=== PATIENT | male | born 1980 | race Caucasian/White ===

== ENCOUNTER 2021-05-17 16:49 | Emergency (ER) | payer OTHER, SELFPAY ==
[2021-05-17] VITALS (12 sets, daily range): BP systolic 165–208; BP diastolic 107–117; PULSE 78–99; RESP 11–22; TEMP 36.6; O2SAT 96–100
--- NOTE | ~2021-05-17 | CT_ITS ---
EXAMINATION: CT brain wo con EXAM DATE: 05/17/2021 17:37 INDICATION: Dizziness. TECHNIQUE: Spiral CT of the head was performed without contrast. Axial, coronal and sagittal images were reviewed. The dose-length product (DLP) for this examination was 605.33 mGy-cm. The exposure w as tailored according to patient size, and iterative reconstruction (ASIR) was used as additional dos e reduction technique. There is no prior study for comparison. FINDINGS: There is no acute intraparenchymal hemorrhage. No evidence of intraparenchymal brain mass lesion. No evidence of acute infarction. There is no mass effect or midline shift. The ventricles are normal in size. There are no extra-axial collections. There are no acute calvarial fractures. T he orbits are unremarkable. Soft tissue is unremarkable. The visualized sinuses and mastoid air vickey ls are well aerated. IMPRESSION: 1. No acute intracranial findings. Reviewed, dictated and finalized at location . CAL PARASITOLOGIST
--- NOTE | ~2021-05-17 | XR_ITS ---
EXAMINATION: XR chest 2V EXAM DATE: 05/17/2021 17:52 INDICATION: Palpitations,Dizzy,Nausea,Hang Tingling,HTN. TECHNIQUE: Frontal and lateral projections of the chest obtained and reviewed. Comparison is made to prior examination from 07/12/2017. FINDINGS: The lungs are clear. There are no pleural effusions. The cardiomediastinal silhouette is within normal limits. There is no pneumothorax suspected. The bones and soft tissues are unremarkab le. IMPRESSION: No acute cardiopulmonary findings. Reviewed, dictated and finalized at location G. NGUAL INSTRUCTOR
--- NOTE | 2021-05-17 16:52 | ECG_ITS ---
Measurements Intervals [place] Rate: 96 P: 51 IA: 170 QRS: 42 QRSD: 97 T: 6 QT: 352 QTc: 445 Interpretive Statements SINUS RHYTHM POSSIBLE LEFT ATRIAL ENLARGEMENT BORDERLINE ECG Electronically Signed On 05-17-2021 20:39:10 SYSTEM ADMINISTRATION ADVISOR by Palomo Cochran D.O.
--- NOTE | 2021-05-17 17:08 | ED.DIZZY ---
HPI - Dizziness General Chief Complaint: Dizziness Stated Complaint: DIZZINESS,PALPATATIONS Time Seen by Provider: 05/17/21 17:08 Source: patient Mode of arrival: ambulatory Limitations: no limitations History of Present Illness HPI Narrative: Patient is a 40-year-old male with a history of hypertension presenting for evaluation of headache, dizziness, palpitations. Patient states that he has been without his blood pressure medication over the past 8 months. When questioned what blood pressure medication the patient used to take he cannot state the name of any medications. He states that he ran out of his prescription and then did not make an appointment with his primary care provider. Patient states today while he was at work approximately five hours ago he started to have notations as well as dizziness. Patient states that the dizziness was an unsteady feeling and he did not endorse a spinning sensation. He reports nausea without vomiting. No blurry vision. Mild headache over his forehead. Patient states he has been having headaches for the past few weeks which have been mild and intermittent, and patient actually called his primary care provider and is scheduled for a follow-up appointment on of this week. Patient denies any focal weakness or numbness. He has been ambulatory. He denies dizziness currently at the time of my assessment. Patient states that yesterday he had to put his dog to sleep, it has been very stressful for him. He denies any chest pain. No cough, shortness of breath. No diaphoresis. After discussion with his PCP, patient used to take Valsartan 320 mg daily. Related Data Allergies Allergy/AdvReac Type Severity Reaction Status Date / Time No Known Allergies Allergy Verified 05/17/21 17:14 Review of Systems Review of Systems: CONSTITUTIONAL: Denies fever, chills, or sweats. EYES: Denies visual changes, redness, or discharge. ENT: Denies rhinorrhea, congestion, sore throat, or otalgia. CARDIOVASCULAR: Denies chest pain, reports palpitations without edema RESPIRATORY: Denies cough or dyspnea. GASTROINTESTINAL: Denies abdominal pain, reports nausea without vomiting GENITOURINARY: Denies dysuria or hematuria. SKIN: Denies rash or itching. MUSCULOSKELETAL: Denies back pain, joint pain, or myalgia. NEUROLOGIC: Reports headache without focal weakness or numbness PMFSH Social History Social History Smoking status: Former smoker Smoking end date: 04/17/14 Alcohol intake: current Exam Narrative: GENERAL: Awake, alert, conversant HEAD: Normocephalic, atraumatic. EYES: PERRLA and EOMI. ENT: Nares clear, no rhinorrhea or epistaxis. Mucous membranes moist. NECK: Supple. CHEST: No respiratory distress, breathing even and non labored HEART: Regular rate, sinus rhythm ABDOMEN:Non distended, non tender EXTREMITIES: Normal range of motion. No edema. SKIN: Warm, dry, no rash. NEURO:No focal deficits. Alert and oriented x3. Finger to nose intact bilaterally. EOMs intact without nystagmus. No facial droop/asymmetry noted bilaterally. Grimace intact. Intact sensation in face. Hearing intact bilaterally. Shoulder shrug intact. Strength 5/5 bilateral upper extremities. Strength 5/5 bilateral lower extremities. Reflexes 2+ patellar. Heel to coppola intact bilaterally. Ambulatory with a steady base, narrow gait. No ataxia. Course Vital Signs Vital signs: Vital Signs Temperature 36.6 C 05/17/21 17:00 Pulse Rate 99 05/17/21 17:00 Respiratory Rate 16 05/17/21 17:00 Blood Pressure 208/117 H 05/17/21 17:00 Pulse Oximetry 99 05/17/21 17:00 Temperature 36.6 C 05/17/21 17:00 Pulse Rate 78 05/17/21 18:53 Respiratory Rate 16 05/17/21 18:53 Blood Pressure 166/114 H 05/17/21 18:53 Pulse Oximetry 100 05/17/21 18:53 MDM - Dizziness MDM Narrative Medical decision making narrative: The patient was evaluated in the emergency
--- NOTE | 2021-05-17 17:35 | PC.NURSE ---
Pt. to CT
[2021-05-17] MEDS: MAGNESIUM SULF 2 GM/WATER 50ML 2 GM/50 ML BAG IVPB (17:51)
[2021-05-17] MEDS: SODIUM CHLORIDE 0.9% IV 1,000 ML 999 ML IV CONT (17:51)
[2021-05-17] MEDS: METOCLOPRAMIDE HCL INJ 10 MG/2 ML VIAL IV PUSH (17:52)
[2021-05-17] MEDS: METOPROLOL TARTRATE INJ 5 MG/5 ML VIAL IV PUSH (17:54)
[2021-05-17 17:55] LABS: Basophils Absolute Auto 0.1 K/mm3 (0.0-0.1); Basophils Percent Auto 0.6 % (0.2-1.2); Eosinophils Absolute Auto 0.2 K/mm3 (0-0.3); Eosinophils Percent Auto 2.4 % (0-4.4); Hematocrit 40.6 % (42.0-52.0); Hemoglobin 13.9 g/dL (14.0-18.0); Immature Granulocyte Absolute 0.02 K/mm3 (0.00-0.031); Immature Granulocyte Percent A 0.3 % (0-0.5); Lymphocytes Absolute Auto 1.81 K/mm3 (0.9-3.2); Lymphocytes Percent Auto 22.9 % (18.3-44.2); Mean Corpuscular HGB Conc 34.2 g/dl (32-36); Mean Corpuscular Hemoglobin 30.5 pg (26-34); Mean Corpuscular Volume 89.2 fl (80-100); Mean Platelet Volume 9.7 fl (7.4-10.4); Monocytes Absolute Auto 0.5 K/mm3 (0.1-0.6); Monocytes Percent Auto 6.5 % (2.6-8.5); Neutrophils Absolute Auto 5.3 K/mm3 (1.3-6.7); Neutrophils Percent Auto 67.3 % (45.5-73.1); Platelet Count Result 292 k/mm3 (150-375); Red Blood Count 4.55 M/mm3 (4.6-6.20); White Blood Count 7.9 K/mm3 (4.5-10.0)
[2021-05-17 18:14] LABS: Alanine Aminotransferase 28 U/L (4-50); Albumin Level 4.3 g/dL (3.5-5.1); Alkaline Phosphatase 133 U/L (38-126); Anion Gap 8 mmol/L (8-16); Aspartate Amino Transferase 22 U/L (17-59); Bilirubin,Total 0.5 mg/dL (0.2-1.3); Blood Urea Nitrogen 15 mg/dL (9-20); Calcium 8.5 mg/dL (8.4-10.2); Carbon Dioxide 20 mmol/L (22-30); Chloride 105 mmol/L (98-107); Estimated CRCL calculation 107 ml/min; Estimated Glomerular Filt Rate > 60; Glucose 161 mg/dL (65-110); Potassium 3.5 mmol/L (3.4-5.0); Sodium 133 mmol/L (137-145)
[2021-05-17] MEDS: VALSARTAN 160 MG TABLET 320 MG PO (18:15)
[2021-05-17 18:19] LABS: NT Pro B Type Natriuretic Pept 115 pg/mL (5-100)
[2021-05-17 18:21] LABS: Troponin I < 0.012 ng/mL (0.000-0.034)
[2021-05-17 19:13] LABS: Add Urine Microscopic? NO; Appearance Urine Clear (Clear); Bilirubin Urine Negative (Negative); Blood Urine Negative (Negative); Color Urine Yellow (Yellow); Glucose Urine UA Negative (Negative); Ketones Urine Negative (Negative); Leukocyte Esterase Ur Negative LEU/UL (Negative); Nitrate Urine Negative (Negative); Protein Urine Negative (Negative); Specific Grav Ur 1.017 (1.001-1.035); Urobilinogen Urine Negative mg/dL (<2.0)
== END 2021-05-17 19:30 | disposition home or self-care (01) ==
PROVIDERS: Emergency Provider Emergency Medicine; PCP Physician Assistant
DX: I16.9 Hypertensive crisis, unspecified (principal); R51.9 Headache, unspecified; R42 Dizziness and giddiness; Z87.891 Personal history of nicotine dependence; R94.31 Abnormal electrocardiogram [ECG] [EKG]
CPT/HCPCS: 36415; 70450; 71046; 80053; 81003; 83880; 84484; 85025; 93005; 96365; 96367; 96375; 99284; A9270; J0131; J2765; J3475; J7030

== ENCOUNTER 2021-05-28 15:33 | Outpatient (CLI) | payer OTHER, SELFPAY ==
--- NOTE | ~2021-05-28 | US_ITS ---
EXAMINATION: US retroperitoneal duplex ltd EXAM DATE: 05/28/2021 16:12 INDICATION: TECHNIQUE: Multiple grayscale and Doppler images of the kidneys and renal arteries were obtained. T here is no prior study for comparison. FINDINGS: The aorta peak systolic velocity is 108 cm/s. Renal arteries interrogated in several segments from origin to hilum. RIGHT RENAL ARTERY Proximal segment (origin): 117 cm/s. Middle segment: 117 cm/s. Distal segment (hilum): 87 cm/s. LEFT RENAL ARTERY Proximal segment (origin): 104 cm/s. Middle segment: 67 cm/s. Distal segment (hilum): 74 cm/s. IMPRESSION: 1. Renal artery Doppler velocities within normal limits. Reviewed, dictated and finalized at location B. PT MANAGER
== END 2021-05-28 15:34 | disposition home or self-care (01) ==
LOC: ANHIMG 15:36
PROVIDERS: PCP Physician Assistant; Visit Provider Physician Assistant
DX: I10 Essential (primary) hypertension (principal)
CPT/HCPCS: 93976

== ENCOUNTER 2022-08-14 08:07 | Emergency (ER) | payer OTHER, SELFPAY ==
--- NOTE | 2022-08-14 08:11 | ED.URI ---
HPI - URI/Sore Throat General Chief Complaint: Upper Respiratory Infection Stated Complaint: Sore Throat Time Seen by Provider: 08/14/22 08:11 Source: patient, RN notes reviewed and old records reviewed Mode of arrival: ambulatory Limitations: no limitations History of Present Illness HPI Narrative: 41-year-old male presents to the [facility] with complaints of sore throat since this morning. Reports having a cough yesterday. Denies any other symptoms. No fevers. No congestion. No treatment prior to arrival Reports that he did take his blood pressure medication about 30 minutes prior to arrival Onset (ago): hour(s) Treatments prior to arrival: none Related Data Home Medications Medication Instructions Recorded Confirmed amlodipine 10 mg tablet 10 mg PO DAILY 08/14/22 08/14/22 Allergies Allergy/AdvReac Type Severity Reaction Status Date / Time No Known Allergies Allergy Verified 08/14/22 08:12 Review of Systems Review of Systems: All systems reviewed & are unremarkable except as noted in HPI and below Constitutional: Constitutional: Reports no additional constitutional complaints Eyes: Eyes: Reports no additional eye complaints ENT: Reports as per HPI and Reports sore throat Cardiovascular: Cardiovascular: Reports no additional cardiovascular complaints, Denies chest pain and Denies dyspnea Respiratory: Respiratory: Reports as per HPI, Denies chest congestion, Reports cough and Denies dyspnea Gastrointestinal: Gastrointestinal: Reports no additional gastrointestinal complaints, Denies abdominal pain, Denies nausea and Denies vomiting Musculoskeletal: Musculoskeletal: Reports no additional musculoskeletal complaints Integumentary/Breasts: Skin/Breast: Reports system reviewed and no additional complaints, except as docu Neurologic: Reports system reviewed and no additional complaints, except as documented Psychiatric: Psychiatric: Reports no additional psychiatric complaints Allergic/Immunologic: Allergic/Immunologic: Reports no additional allergic/immunologic complaints [facility] Past Medical History Medical History History of high blood pressure Social History Social History Smoking status: Former smoker Smoking end date: 04/17/14 Alcohol intake: current Comments At the time of my signature, I reviewed and agree with the nursing past medical, surgical, social, and family history. There is no relevant family history pertinent to the patient complaint. Exam Const: General: cooperative, healthy appearing, comfortable, no acute distress, well developed, alert and well nourished Nutritional Appearance: well nourished Orientation/consciousness: patient oriented x3 Limitations: no limitations HENMT: Head: normal to inspection Ears: hearing grossly normal bilaterally and external ears normal Face/Nose/Sinus: Normal external nose present, Normal nares present, Normal nasal mucous membranes and turbinates present and normal facial exam Face and sinus: normal facial exam Mouth: Yes Normal oral and palatal mucosa present, Yes lip normal and Yes moist mucous membranes Throat: posterior oropharynx normal, tonsils normal, uvula midline and postnasal drainage Eyes: General: appearance normal, both eyes and all related structures Alignment and Position: alignment normal Periorbital: periorbital findings normal Conjunctivae: conjunctivae normal Pupils: Equal, round and reactive pupils present EOM: EOMs intact bilaterally Neck: Neck: normal visual inspection, full ROM, no lymphadenopathy and no meningeal signs Chest: Chest palpation & inspection: normal inspection of the chest Resp: Effort & Inspection: normal respiratory effort and able to speak in complete sentences Auscultation: clear to auscultation bilaterally, no crackles, no rales, no rhonchi and no wheezes Cardio: Rate: regular rate Rh
[2022-08-14 08:15] VITALS: BP 146/101; PULSE 73; RESP 20; TEMP 36.4; O2SAT 99
== END 2022-08-14 08:36 | disposition home or self-care (01) ==
PROVIDERS: Emergency Provider Nurse Practitioner
DX: J06.9 Acute upper respiratory infection, unspecified (principal); Z87.891 Personal history of nicotine dependence; I10 Essential (primary) hypertension
CPT/HCPCS: 87081; 87880; 99213; G0463

== ENCOUNTER 2024-01-10 22:45 | Emergency (ER) | payer OTHER, SELFPAY ==
--- NOTE | ~2024-01-10 | CT_ITS ---
EXAMINATION: CT brain wo con DATE: 01/10/2024 23:15 INDICATION: syncopal episode . TECHNIQUE: Computed tomography (CT) of the head was performed without intravenous contrast. The mA wa s adjusted according to patient size. Iterative reconstruction technique was employed. The dose-lengt h product was 605.33 mGy-cm. COMPARISON: None. FINDINGS: No acute intracranial hemorrhage or extra-axial fluid collection. No hydrocephalus, mass, or herniation. No acute ischemic infarct. Unremarkable dural venous sinus attenuation. No acute osseous abnormality. The aerated spaces are clear. IMPRESSION: No acute intracranial process. Reviewed, dictated and finalized at location K.
[2024-01-10 22:46] VITALS: BP 131/83; PULSE 81; RESP 14; TEMP 36; O2SAT 98
--- NOTE | 2024-01-10 22:49 | ECG_ITS ---
Test Date: 2024-01-10 22:49:21 Measurements Intervals [place] Rate: 79 P: 30 WV: 172 QRS: 47 QRSD: 92 T: 26 QT: 379 QTc: 435 Interpretive Statements SINUS RHYTHM NORMAL ECG No previous ECG available for comparison Electronically Signed On 01-11-2024 07:58:46 CDT by Palomo Cochran D.O.
[2024-01-10 22:58] LABS: Basophils Percent Auto 0.6 % (0.2-1.2); Eosinophils Absolute Auto 0.1 K/mm3 (0-0.3); Eosinophils Percent Auto 2.1 % (0-4.4); Hematocrit 35.5 % (42.0-52.0); Hemoglobin 11.8 g/dL (14.0-18.0); Immature Granulocyte Absolute 0.01 K/mm3 (0.00-0.031); Immature Granulocyte Percent A 0.2 % (0-0.5); Lymphocytes Absolute Auto 2.17 K/mm3 (0.9-3.2); Lymphocytes Percent Auto 34.6 % (18.3-44.2); Mean Corpuscular HGB Conc 33.2 g/dl (32-36); Mean Corpuscular Hemoglobin 30.3 pg (26-34); Mean Platelet Volume 9.4 fl (7.4-10.4); Monocytes Absolute Auto 0.4 K/mm3 (0.1-0.6); Monocytes Percent Auto 6.8 % (2.6-8.5); Neutrophils Absolute Auto 3.5 K/mm3 (1.3-6.7); Neutrophils Percent Auto 55.7 % (45.5-73.1); Platelet Count Result 293 k/mm3 (150-375); Red Cell Distribution Width 13.6 % (11.5-14.5); White Blood Count 6.3 K/mm3 (4.5-10.0)
[2024-01-10] MEDS: ONDANSETRON INJ 4 MG/2 ML VIAL IV PUSH (22:59)
[2024-01-10] MEDS: SODIUM CHLORIDE 0.9% IV 1,000 ML 999 ML IV CONT (22:59)
[2024-01-10 23:00] VITALS: BP 132/80; PULSE 71; RESP 16; O2SAT 94
--- NOTE | 2024-01-10 23:06 | ED.SYNCOPE ---
HPI - Syncope General Chief Complaint: Syncope <Nadege Becerra APRN - Last Filed: 01/11/24 03:02> Stated Complaint: SYNCOPE S/P ETOH & MARIJUANA USE <Nadege Becerra APRN - Last Filed: 01/11/24 03:02> Time Seen by Provider: 01/10/24 22:46 <Nadege Becerra APRN - Last Filed: 01/11/24 03:02> History of Present Illness HPI narrative: Patient is a 43-year-old male who presents to the ER after a syncopal episode. He reports he was at the bar and has 3 drinks, then he went home and had 1 hit of marijuana. Patient reports he decided to grab a snack but then started to feel dizzy and his vision went blurry. He reports his walked out to the garage and found him slumped over. Patient reports he had also vomited. He reports he did not fall but rather slumped in his chair. Patient endorses shaking, diaphoresis, and vertigo prior to his syncopal episode. Upon arrival at the ER he denies shaking and diaphoresis, but continues to endorse dizziness. EMS reports patient appears much better than he did upon their arrival at his house. Patient endorses a history of hypertension, for which he takes 2 daily medications. He also endorses he is prediabetic. Patient has a primary care provider. <Nadege Becerra APRN - Last Filed: 01/11/24 03:02> Related Data Home Medications: Home Medications Medication Instructions Recorded Confirmed amlodipine 10 mg tablet 10 mg PO DAILY 08/14/22 08/14/22 <Nadege Becerra APRN - Last Filed: 01/11/24 03:02> Allergies/Adverse Reactions: Allergies Allergy/AdvReac Type Severity Reaction Status Date / Time No Known Allergies Allergy Verified 08/14/22 08:12 <Nadege Becerra APRN - Last Filed: 01/11/24 03:02> Review of Systems Review of Systems: All systems reviewed & are unremarkable except as noted in HPI and below <Nadege Becerra APRN - Last Filed: 01/11/24 03:02> [facility] Past Medical History Medical History: Medical History History of high blood pressure <Nadege Becerra APRN - Last Filed: 01/11/24 03:02> Social History Social History: Social History Smoking status: Former smoker Smoking end date: 04/17/14 Alcohol intake: current <Nadege Becerra APRN - Last Filed: 01/11/24 03:02> Exam Narrative: GENERAL: Well appearing, well-nourished, non-toxic, in no acute distress. HEAD: Normocephalic, atraumatic. NECK: Supple. No adenopathy, no masses. RESPIRATORY: Airway patent, respirations nonlabored. Clear to auscultation bilaterally, no rales, rhonchi, wheezing. CARDIOVASCULAR: Regular rate and rhythm without murmurs, rubs, or gallops. Peripheral pulses 2+ and equal bilaterally. ABDOMINAL: Soft, nontender, nondistended, no hepatosplenomegaly. Normoactive BS. MUSCULOSKELETAL: Moves all extremities. Strength/ROM intact without gross deformities. SKIN: Warm, dry, pallor. No rashes. NEURO: A&O X3. Speech clear. Cranial nerves II-XII grossly intact. No ataxic movements, increased vertigo with pt moved to a sitting position. PSYCHIATRIC: Appropriate mood and affect. Normal interaction. <Nadege Becerra APRN - Last Filed: 01/11/24 03:02> Course MAIL ORDER BILLER/PA Physician Supervision I agree with midlevel documentation; I performed the medical decision making component of this evaluation. <Amanda Hernandez MD - Last Filed: 01/11/24 03:49> Reevaluation(s) Reevaluation #1: Patient 2nd troponin is normal. Telemetry on my independent interpretation showing normal sinus rhythm. Patient on re-evaluation is feeling better. With shared decision making, patient and at bedside are comfortable with outpatient management with return precautions. <Amanda Hernandez MD - Last Filed: 01/11/24 03:49> Vital Signs Vital signs: Vital Signs Temperature 96.8 F L 01/10/24 22:46 Pulse Rate 81
[2024-01-10 23:11] LABS: Alanine Aminotransferase 30 U/L (6-50); Albumin Level 4.4 g/dL (3.5-5.1); Alkaline Phosphatase 81 U/L (38-126); Anion Gap 10 mmol/L (4-12); Aspartate Amino Transferase 19 U/L (17-59); Bilirubin,Total 0.3 mg/dL (0.2-1.3); Blood Urea Nitrogen 26 mg/dL (9-20); Calcium 8.8 mg/dL (8.4-10.2); Carbon Dioxide 23 mmol/L (22-30); Chloride 104 mmol/L (98-107); Estimated CRCL calculation 77 ml/min; Estimated Glomerular Filt Rate 55; Glucose 106 mg/dL (65-110); INR 1.1; Magnesium 2.1 mg/dL (1.6-2.3); Potassium 3.5 mmol/L (3.4-5.0); Prothrombin Time 14.3 Seconds (11.1-14.7); Sodium 137 mmol/L (137-145)
[2024-01-10 23:12] LABS: Partial Thromboplastin Time 25.1 Seconds (22.3-36.8)
[2024-01-10 23:22] LABS: D Dimer < 0.27 ug/mL (<0.48); Troponin I < 0.012 ng/mL (0.000-0.034)
[2024-01-11 00:42] LABS: Hemoglobin A1C 5.8 % (<5.7)
[2024-01-11 01:22] LABS: Add Urine Microscopic? YES; Appearance Urine Clear (Clear); Bacteria Urine None Seen /hpf; Bilirubin Urine Negative (Negative); Blood Urine Negative (Negative); Color Urine Yellow (Yellow); Glucose Urine UA Negative (Negative); Ketones Urine Negative (Negative); Leukocyte Esterase Ur Trace LEU/UL (Negative); Nitrate Urine Negative (Negative); Non Pathogenic Casts 0-2; Protein Urine Negative (Negative); RBC Urine 0-2 /hpf (0-2); Specific Grav Ur 1.021 (1.001-1.035); Squamous Epithelial Cell Urine None Seen /hpf (Few); pH Urine 5.5 (5.0-9.0)
[2024-01-11] MEDS: SODIUM CHLORIDE 0.9% IV 1,000 ML 999 ML IV CONT (01:53)
[2024-01-11 02:00] VITALS: BP 137/93; PULSE 77; RESP 14; O2SAT 96
[2024-01-11 03:27] LABS: Troponin I < 0.012 ng/mL (0.000-0.034)
[2024-01-11 04:11] VITALS: BP 134/70; PULSE 78; RESP 14; O2SAT 100
== END 2024-01-11 04:13 | disposition home or self-care (01) ==
PROVIDERS: Registered Nurse; Emergency Provider Emergency Medicine; PCP Physician Assistant
DX: N39.0 Urinary tract infection, site not specified (principal); E86.0 Dehydration; R42 Dizziness and giddiness; F12.90 Cannabis use, unspecified, uncomplicated; I10 Essential (primary) hypertension; R73.03 Prediabetes; Z87.891 Personal history of nicotine dependence
CPT/HCPCS: 36415; 70450; 80053; 81001; 83036; 83735; 84443; 84484; 85025; 85380; 85610; 85730; 87077; 87086; 87088; 87186; 93005; 96361; 96365; 96375; 99284; J0696; J2405; J7030

== ENCOUNTER 2024-08-29 02:53 | Day surgery (SDC) | payer OTHER, SELFPAY ==
[2024-08-22 10:03] VITALS: BMI 28.4
--- OUTSIDE RECORDS SUMMARY | 2024-08-29 02:55 | XMS_ITS | Referral Summary ---
Author Organization [facility] [id number] Address [address] [place] [phone] Care Team Providers Care Aircraft Structural Design Engineer Name Role Phone Naty Molina Primary Care Pr ovider Allergies No known active allergies Medications valsartan (DIOVAN) 320 mg tablet 1 tablet (320 mg total) Active amLODIPine (NORVASC) 10 mg tablet Take 1 tablet (10 mg total) by mouth daily 08/17/2022 Active Hospital, Clinic, or Other Facility Administered Medication Ordered Dose Route Frequency Start Date End Date Status cefTRIAXone (ROCEPHIN) 350 mg/mL intramuscular injection 1,000 mgIndications:Urinary Tract/Genitourinary Infection 1000 mg IM Every 24 hours scheduled 10/14/2023 Active Active Problems Problem Noted Date Diagnosed Date Injury of lower leg 05/08/2023 Spastic paraplegia type 11 03/15/2023 Morning headache 08/25/2022 Obstructive sleep apnea syndrome 08/25/2022 Dyslipidemia 06/23/2021 Impaired glucose tolerance 06/23/2021 Bacterial conjunctivitis 06/08/2021 Feeling stressed out 05/23/2021 Anxiety 05/23/2021 Resistant hypertension 05/23/2021 Benign essential hypertension 05/18/2021 Social History Tobacco Use Types Packs/Day Years Used Date Smoking Tobacco: Never Smokeless Tobacco: Never Tobacco Cessation:Counseling Given: Not Answered Sex and Gender Information Value Date Recorded Sex Assigned at Not on file Legal 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 Gender Identity Not on file Sexual Orientation Not on file Last Filed Vital Signs Vital Sign Reading Time Taken Comments Blood Pressure 126/70 10/14/2023 6:22 PM CDT Pulse 106 10/14/2023 6:22 PM CDT Temperature 38.2 C (100.8 F) 10/14/2023 6:22 PM CDT Respiratory Rate 22 10/14/2023 6:22 PM CDT Oxygen Saturation 96% 10/14/2023 6:22 PM CDT Inhaled Oxygen Concentration - - Weight 122 kg (269 lb) 10/14/2023 6:22 PM CDT Height 185.4 cm (6' 1 ) 10/14/2023 6:22 PM CDT Body Mass Index 35.49 10/14/2023 6:22 PM CDT Plan of Treatment Not on file Insurance Care Teams Aircraft Structural Design Engineer Relationship Specialty Start Date End Date Naty Molina PA PCP - General Physician Rehabilitation Liaison 11/19/22
--- OUTSIDE RECORDS SUMMARY | 2024-08-29 02:55 | XMS_ITS | Data Portability ---
Author Organization TE[facility] Danielle KAPLAN Address [address] [place] [address] Care Team Providers Care Claim Administrator Name Role Phone MENDEZ SARGENT Primary Care Provider Unavailab le Assessment No assessment recorded. Plan of Treatment Reminders Order Date Submit Date Provider Last Modified By Organization Details Last Modified Time Details Appointments NURSE ONLY 2024 08:30A M JOSR Maki Not available Not available Not available ANY 15 2024 08:00A M JOSR Maki Not available Not available Not available Lab None recorded. Referral None recorded. Procedures None recorded. Surgeries None recorded. Imaging None recorded. Medication Orders testoster one cypionate 200 mg/mL intramusc ular oil 2024 025 [email or web address] [facility] [address], [address] [facility], [place], [address], 08/22/2024 16:35:14 testoster one cypionate 200 mg/mL intramusc ular oil 2024 025 Not available 08/08/2024 13:09:39 testoster one cypionate 200 mg/mL intramusc ular oil 2024 025 Not available 07/25/2024 13:43:13 testoster one cypionate 200 mg/mL intramusc ular oil 2024 025 Not available 07/11/2024 13:16:57 testoster one cypionate 100 mg/mL intramusc ular oil 2024 025 [email or web address] [facility] [address], [address], [place], [address], 06/27/2024 12:49:12 Patient TargetsNo targets recorded. Patient InstructionsNo instructions recorded. Reason for Referral None Reported. Results Created Date Observation Date Name Description Value Unit Range Abnormal Flag Note LastModifiedBy Organization Detail LastModifiedTime Result Notes None recorded. Problems Name Problem SNOMED Code Status Onset Date Resolution Date Notes Provider Name and Address Organization Details Recorded Time Benign essential hypertension 4140173 Active 2023 JOSR Maki Attn: Accountin g,[address], [place], [address], [place] [facility] 4 10:27:39 Hyperlipidemia 55770778 Active 2023 JOSR Maki Attn: Accountin g,[address] [facility], [place], [address], [place] [facility] 4 10:27:41 Blood glucose outside reference range 731951275 Active 2023 JOSR Maki Attn: Accountin g,[address] [facility], [place], [address], [place] [facility] 4 10:27:43 Body mass index 30+ - obesity 187055945 Active 2023 JOSR Maki Attn: Accountin g,[address] [facility], [place], [address], [place] [facility] 4 10:27:45 Obesity 836813152 Active 2023 JOSR Maki Attn: Accountin g,[address] [facility], [place], [address], [place] [facility] 4 10:27:46 Erectile dysfunction 715675021 Active 2023 JOSR Maki Attn: Accountin g,[address] [facility], [place], [address], [place] [facility] 4 10:27:16 Intolerant of heat 27014139 Active 2023 JOSR Maki Attn: Natacha g,[address] [facility], [place], [address], [facility] - [facility] 4 10:27:26 Anemia 649001723 Active 2023 JOSR Maki Attn: Natacha g,[address] [facility], [place], [address], [facility] - [facility] 4 10:28:42 Long-term drug therapy Active 2023 JOSR Maki Attn: Natacha g,[address] [facility], [place], [address], [facility] - [facility] 4 10:29:35 Problem Notes None recorded. Medical Equipment None Reported. Allergies No known drug allergies Medications Name Sig Start Date Stop Date Status Note LastModified by Organization Details LastModified Time amoxicillin 500 mg capsule TAKE 1 CAPSULE BY MOUTH TWICE DAILY FOR 10 DAYS 12/13 completed Not Available Not Available Not Available testosteron e cypionate 100 mg/mL intramuscul ar oil INJECT 1ML INTRAMUSC ULARLY EVERY 2 WEEKS DISCARD REMAINDER 28 DAYS AFTER FIRST PUNCTURE active Not Available Not Available No t Available valsartan 160 mg-hydrochl orothiazide 12.5 mg tablet completed Not Available Not Available Not Available sulfamethox azole 800 mg-trimetho prim 160 mg tablet TAKE 1 TABLET BY MOUTH TWICE DAILY FOR 7 DAYS 12/13 completed Not Available Not Available Not Available amlodipine 10 mg tablet Take 1 tablet by mouth once daily 2024 active Not Available Not Available Not Avai lable cephalexin 500 mg capsule TAKE 1 CAPSULE BY MOUTH TWICE DAILY FOR 10 DAYS 12/13 completed Not Available Not Available Not Available valsartan 320 mg tablet TAKE 1 TABLET BY MOUTH ONCE DAILY active Not Available Not Available No t Available betamethaso ne dipropionat e 0.05 % topical cream active Not Available Not Available Not Available testosteron e cypionate 200 mg/mL intramuscul ar oil Inject 1 mL every 2 weeks by intramusc ular route. 2024 active Not Available Not Available Not Avai lable tadalafil 20 mg tablet TAKE 1 TABLET BY MOUTH EVERY DAY NEEDED FOR INTERCOUR SE active Not Available Not Available No t Available nitrofurant oin monohydrate /macrocryst als 100 mg capsule 06/20 completed Not Available Not Available Not Available Vitals None Recorded Social History Question Answer Notes LastModified by Organizat ion Details LastModified Time Tobacco Smoking Status Never Smoker Parvin Díaz MA null, [place] - [facility] 06/15/2023 10:52:49 Do You Have An Advance Directive? Yes Information not available 12/14/2023 Are You Blind Or Do You Have Difficulty Seeing? No Information not available 06/15/2023 What Is Your Level Of Caffeine Consumption? Occasional Cup Cofee Am, Soda Lunch Information not available 06/15/2023 In The 14 Days Before Symptom Onset, Have You Had Close Contact With A Laboratory-confir med COVID-19 While That Case Was Ill? No Information not available 06/15/2023 In The 14 Days Before Symptom Onset, Have You Had Close Contact With A Person Who Is Under Investigation For COVID-19 While That Person Was Ill? No Information not available 06/15/2023 Have You Been To An Area Known To Be High Risk For COVID-19? No Information not available 06/15/2023 Are You Deaf Or Do You Have Serious Difficulty Hearing? No Information not available 06/15/2023 What Type Of Diet Are You Following? REGULAR Information not available 06/15/2023 Are There Any Guns Present In Your Home? No Information not available 06/15/2023 What Was The Date Of Your Most Recent Tobacco Screening? 06/20/2024 Information not available 06/20/2024 What Is Your Relationship Status? Information not available 12/14/2023 Do You Use Your Seat Belt Or Car Seat Routinely? Yes Information not available 06/15/2023 Do You Have Smoke And Carbon Monoxide Detectors In Your Home? Yes Information not available 06/15/2023 Do You Use Sunscreen Routinely? Yes Information not available 06/15/2023 Has Tobacco Cessation Counseling Been Provided? Yes Information not available 06/15/2023 On What Date Was Tobacco Cessation Counseling Provided? 06/20/2024 Information not available 06/20/2024 Sex: Male Functional Status Question Answer Note LastModified by Organizat ion Details LastModified Time Do you use any illicit or recreational drugs? No Information not available 06/15/2023 Do you or have you ever used any other forms of tobacco or nicotine? Yes Information not available 06/15/2023 What is your level of alcohol consumption? Occasional Information not available 06/15/2023 Do you or have you ever used smokeless tobacco? Never used smokeless tobacco Information not available 12/14/2023 Are you currently employed? Yes Information not available 06/20/2024 Are you able to care for yourself? Yes Information not available 06/15/2023 Do you or have you ever used e-cigarettes or vape? Current user of electronic cigarettes vape Information not available 12/14/2023 What is your exercise level? None Walk at work , Walk Dog Information not available 06/15/2023 Mental Status Question Answer Note LastModified by Organization D etails LastModified Time Do you feel stressed (tense, restless, nervous, or anxious, or unable to sleep at night)? [id number] Information not available 06/15/2023 Family History Nothing Reported. Medical History Condition Response Muscle, Joint, or Bone Problems N Atrial Fibrillation N Acid Reflux (GERD) N Cancer N Allergies Y COPD N Blood Clots N Asthma N Anemia N Hepatitis N Liver Disease N Heart Failure N Immunizations Vaccine Type Date Status Note Provider Nam e and Address Organization Details Recorded Time Influenza, recombinant, quadrivalent, PF 03/16/2022 completed SHELBY Kim[place], [place] [facility] 02/07/2024 10:03:17 COVID-19, mRNA, LNP-S, PF, 100 mcg/0.5mL dose or 50 mcg/0.25mL dose 02/24/2021 completed SHELBY [place], [place] [facility] 02/07/2024 10:03:17 COVID-19 vaccine, vector-nr, rS-Ad26, PF, 0.5 mL 06/22/2020 completed Parvin Díaz MA null, [place] - [facility] 02/07/2024 10:03:17 Influenza, split virus, quadrivalent, PF 12/10/2019 completed SHELBY Kim[place], [place] [facility] 02/07/2024 10:03:17 Past Encounters Encounter ID Performer Location Encounter Start Date Encounter Closed Date Diagnosis/Indication Diagnosis SNOMED-CT Code Diagnosis ICD10 Code Diagnosis Note [id number] Yoni Pedroza MD [facility] [address] [place] [address] 06/15/2023 10:34:55 06/15/2023 11:25:31 Benign essential hypertension 2307123 I10 stable on amlodipine 10mg daily and valsartan 320mg daily. Hyperlipidemia 17564679 E78.5 due for repeat fasting lipid panel Long-term drug therapy 346721809 Z79.899 routine cmp and cbc due Blood gluc ose outside reference range 515940319 R73.09 prediabete s hx on labs. due for updated a1c and insulin in october. Body mass index 30+ - obesity 350026872 Z68.36 Obesity 095794554 E66.9 [id number] Yoni Pedroza MD [facility] - [place] [address] [place] [address] 12/14/2023 10:14:54 12/14/2023 11:37:59 Benign essential hypertension 0713644 I10 stable on amlodipine 10mg daily and valsartan 320mg daily. Hyperlipidemia 23898528 E78.5 due for repeat fasting lipid panel Long-term drug therapy 150382777 Z79.899 Next labs are due June 12 timeframe Blood gluc ose outside reference range 560730959 R73.09 prediabete s hx on labs. 5.8% on recent labs. This has dropped well from previous labs. Repeat A1c and insulin fasting levels in May Body mass index 30+ - obesity 117598385 Z68.31 BMI has decreased to 31.8 Obesity 831401643 E66.9 Continue excellent dietary and exercise modificati ons that have led to 37 lb of weight loss in 6 months. Adult heal th examination 642731349 Z00.01 Annual wellness exam complete Screening for malignant neoplasm of prostate 144694402 Z12.5 Annual PSA is ordered Anemia 962374415 D64.9 There is a mild drop in hemoglobin and hematocrit at 12 and 36.7 respective ly that is new compared to his past labs. He has had a significan t amount of weight loss in a short period of time so this could be nutritiona lly related but we will go ahead and order a repeat CBC along with iron studies and vitamin B12 and folate. He is age 43 so he will be close to turning 44 but if diagnostic colonoscop y and EGD are needed prior we will get that ordered. Discussed this plan with the patient Intolerant of heat 64304 007 R20.8 Check serum cortisol level 4 intoleranc e of heat complaint on review of systems Erectile dysfunction 860 921562 F52.21 Screening free and total testostero ne levels and start trial of tadalafil 20 mg as needed as directed. [id number] Yoni Pedroza MD [facility] [employer] [facility] [place] [address] [email or web address] [address] 01/12/2024 11:01:51 01/12/2024 13:05:23 Male hypogonadism 80497369 E29.1 [id number] Yoni Pedroza MD [facility] [employer] [facility] [place] [address] [email or web address] [address] 01/24/2024 15:18:27 01/24/2024 16:36:30 Male hypogonadism 57553482 E29.1 [id number] Yoni Pedroza MD [facility] [employer] [facility] [place] [address] [place] [address] 02/08/2024 08:58:38 02/08/2024 09:15:57 Male hypogonadism 30903293 E29.1 [id number] Yoni Pedroza MD [facility] [employer] [facility] [place] [address] [place] [address] 02/22/2024 11:36:10 02/26/2024 16:24:14 Male hypogonadism 20398830 E29.1 [id number] Yoni Pedroza MD [facility] [facility] [place] [address] [place] [address] 03/07/2024 10:44:22 03/07/2024 12:18:10 Male hypogonadism 98608435 E29.1 [id number] Yoni Pedroza MD [facility] [facility] [place] [address] [place] [address] 03/21/2024 09:46:07 03/21/2024 10:16:18 Male hypogonadism 49163575 E29.1 [id number] Yoni Pedroza MD [facility] [facility] [place] [address] [place] [address] 04/04/2024 09:17:55 04/09/2024 11:27:44 Male hypogonadism 55506815 E29.1 [id number] Yoni Pedroza MD [facility] [facility] [place] [address] [place] [address] 04/18/2024 09:23:03 04/18/2024 13:37:11 Male hypogonadism 10454973 E29.1 [id number] Yoni Pedroza MD [facility] [facility] [place] [address] [place] [address] 05/02/2024 09:15:42 05/02/2024 09:29:49 Male hypogonadism 85337930 E29.1 [id number] Yoni Pedroza MD [facility] [place] [address] [place] [address] 05/16/2024 09:20:11 05/16/2024 09:29:15 Male hypogonadism 82772788 E29.1 [id number] Yoni Pedroza MD [facility] [facility] [place] [address] [place] [address] 05/30/2024 09:16:10 05/30/2024 14:37:13 Male hypogonadism 36959216 E29.1 [id number] Yoni Pedroza MD [facility] [place] [address] [place] [address] 06/13/2024 09:16:31 06/13/2024 09:31:39 Male hypogonadism 20244355 E29.1 [id number] Yoni Pedroza MD [facility] [employer] [facility] - [place] [address] [place] [address] 06/20/2024 10:45:08 06/20/2024 12:05:18 Body mass index 30+ - obesity 500636562 Z68.31 BMI has decreased to 30.2 Benign ess ential hypertension 7715448 I10 blood pressure is 120/80,sta ble on amlodipine 10mg daily and valsartan 320mg daily. Hyperlipidemia 44813041 E78.5 due for repeat fasting lipid panel in November Blood gluc ose outside reference range 533784271 R73.09 prediabete s hx on labs. 5.7% on recent labs. This has dropped well from previous labs. repeat labs in November Anemia 999715068 D64.9 There is a mild drop in hemoglobin and hematocrit at 12 and 37 respective ly .He has had a significan t amount of weight loss in a short period of time so this could be nutritiona lly related but we will go ahead and order an upper endoscopy with diagnostic colonoscop y to further evaluate and check updated CBC, iron studies vitamin B12 and folate Erectile dysfunction 860 651457 F52.21 testostero ne levels due now and then again in November with a PSA Long-term drug therapy 965227144 Z79.899 CBC, CMP and thyroid testing will be due again in November Obesity 742129479 E66.9 Continue excellent dietary and exercise modificati ons that have led to 37 lb of weight loss in 6 months. [id number] Yoni Pedroza MD [facility] [employer] [facility] [place] [address] [place] [address] 06/27/2024 09:25:06 06/27/2024 14:11:14 Male hypogonadism 33154398 E29.1 [id number] Yoni Pedroza MD [facility] [employer] [facility] [place] [address] [place] [address] 07/11/2024 12:37:32 07/11/2024 13:35:11 Male hypogonadism 88278047 E29.1 [id number] Yoni Pedroza MD [facility] [place] [address] [place] [address] 07/25/2024 09:14:37 07/25/2024 09:54:45 Male hypogonadism 86226704 E29.1 [id number] Yoni Pedroza MD [facility] [place] [address] [place] [address] 08/08/2024 09:17:56 08/08/2024 09:27:12 Male hypogonadism 95713008 E29.1 [id number] Yoni Pedrzoa MD [facility] [place] [address] [place] [address] 08/22/2024 09:16:46 08/22/2024 09:27:25 Male hypogonadism 13878715 E29.1 Health Concerns Section Related Observation LastModified by Organization Detai ls LastModified Time None Recorded Concern Status LastModified by Organization Details LastModified Time None Recorded Advance Directives Directive Y: Payers Encounter Date Sequence Insurance Name Policy Number Policy Rodriguez Covered Member ID Rodriguez Member ID Guarantor Name 06/27/2024 1 [facility] [id number] Arjun L Stephen [id number] Arjun Stephen 07/11/2024 1 [facility] [id number] Arjun L Stephen [id number] Arjun Stephen 07/25/2024 1 [facility] [id number] Arjun L Stephen [id number] Arjun Stephen 08/08/2024 1 [facility] [id number] Arjun L Stephen [id number] Arjun Stephen 08/22/2024 1 [facility] [id number] Arjun L Stephen [id number] Arjun Stephen
--- OUTSIDE RECORDS SUMMARY | 2024-08-29 02:55 | XMS_ITS | Data Portability ---
Author Organization [facility] [employer], Main Office Address [address] [place] [address] Assessment No assessment recorded. Plan of Treatment Reminders Order Date Submit Date Provider Last Modified By Organization Details Last Modified Time Details Appointments None recorded. Lab HbA1c (hemoglobin A1c), blood 2022 023 [email or web address] [facility], [address], [place], [address], 09:30:30 lipid panel, serum 2022 023 [email or web address] [facility], [address], [address], [place], [address], 09:30:46 TSH + free T4, serum 2022 023 [email or web address] [facility], [address], [address], [place], [address], 09:31:09 CBC w/ auto diff 2022 023 [email or web address] [facility], [address], [address], [place], [address], 09:30:54 CMP, serum or plasma 2022 023 [email or web address] [facility], [address], [address], [place], [address], 3 09:31:02 PSA, total, serum or plasma 2022 023 [email or web address] [facility], [address], [address], [place], [address], 3 09:30:38 PSA, total, serum or plasma 2022 023 [email or web address] 4 [facility], [address], [address], [place], [address], 3 12:22:16 HbA1c (hemoglobin A1c), blood 2022 023 [email or web address] 4 [facility], [address], [address], [place], [address], 3 12:22:15 TSH + free T4, serum 2022 023 [email or web address] 4 [facility], [address], [address], [place], [address], 3 12:22:17 lipid panel, serum 2022 023 [email or web address] 4 [facility], [address], [address], [place], [address], 3 12:22:16 CBC w/ auto diff 2022 023 [email or web address] 4 [facility], [address], [address], [place], [address], 3 12:22:16 CMP, serum or plasma 2022 023 [email or web address] 4 [facility], [address], [address], [place], [address], 3 12:22:16 urinalysis, dipstick, reflex micro 2022 023 [email or web address] 4 [facility], [address], [address], [place], [address], 12:22:17 Referral None recorded. Procedures None recorded. Surgeries None recorded. Imaging home sleep study 2022 023 MARY Not available 13:59:09 Medication Orders amlodipine 10 mg tablet 2022 023 MARY [facility] [address], [address], [place], [address], 10:01:36 valsartan 320 mg tablet 2022 023 MARY [facility] [address], [address], [place], [address], 10:01:35 Patient TargetsNo targets recorded. Patient InstructionsNo instructions recorded. Reason for Referral None Reported. Results Created Date Observation Date Name Description Value Unit Range Abnormal Flag Note LastModifiedBy Organization Detail LastModifiedTime 06/11/1906/15/2021 PSA, TOTAL PSA, total 1.61 NG/mL < or = 4.00 normal The total PSA value from this assay syste m is stand ardiz ed again st the WHO stand tania. The test resul t will be appro ximat shelby 20% lower when jimmie red to the equim olar- stand ardiz ed total PSA (Ochoa man Coult er). Jimmie rison of seria l PSA resul ts shoul d be inter prete d with this fact in mind. This test was perfo rmed using the Sieme ns chemi lumin escen t metho d. Value s obtai eduin from diffe rent assay metho ds canno t be used inter hernandez eably . PSA level s, regar dless of value , shoul d not be inter prete d as absol jose alfredo evide nce of the prese nce or absen ce of disea se. Not Available [employer] [facility] [address], [place], [address], 06/16/2021 01:00:03 06/11/19 22 06/15/2021 URINA LYSIS , COMPL ETE color yellow yellow normal Not Available [address], [address], 06/16/2021 01:00:03 06/11/19 22 06/15/2021 URINA LYSIS , COMPL ETE appearance turbid clear abnormal Not Available [address], [address], 06/16/2021 01:00:03 06/11/19 22 06/15/2021 URINA LYSIS , COMPL ETE specific gravity 1.028 1.001- 1.035 normal Not Available [address], [address], 06/16/2021 01:00:03 06/11/19 22 06/15/2021 URINA LYSIS , COMPL ETE pH < or = 5.0 5.0-8. 0 normal Not Available [address], [address], 06/16/2021 01:00:03 06/11/19 22 06/15/2021 URINA LYSIS , COMPL ETE glucose negati ve negati ve normal Not Available [address], [address], 06/16/2021 01:00:03 06/11/19 22 06/15/2021 URINA LYSIS , COMPL ETE bilirubin negati ve negati ve normal Not Available [address], [address], 06/16/2021 01:00:03 06/11/19 22 06/15/2021 URINA LYSIS , COMPL ETE ketones negati ve negati ve normal Not Available [address], [address], 06/16/2021 01:00:03 06/11/19 22 06/15/2021 URINA LYSIS , COMPL ETE occult blood negati ve negati ve normal Not Available [facility] [address] [address], [place], [address], 06/16/2021 01:00:03 06/11/19 22 06/15/2021 URINA LYSIS , COMPL ETE protein 1+ negati ve abnormal Not Available [address], [address], 06/16/2021 01:00:03 06/11/19 22 06/15/2021 URINA LYSIS , COMPL ETE nitrite negati ve negati ve normal Not Available [facility] [address], [address], 06/16/2021 01:00:03 06/11/19 22 06/15/2021 URINA LYSIS , COMPL ETE leukocyte esterase negati ve negati ve normal Not Available [address], [address], 06/16/2021 01:00:03 06/11/19 22 06/15/2021 URINA LYSIS , COMPL ETE WBC 6-10 /hpf < or = 5 abnormal Not Available [address], [address], 06/16/2021 01:00:03 06/11/19 22 06/15/2021 URINA LYSIS , COMPL ETE RBC none seen /hpf < or = 2 normal Not Available [address], [address], 06/16/2021 01:00:03 06/11/19 22 06/15/2021 URINA LYSIS , COMPL ETE squamous epithelial cells none seen /hpf < or = 5 normal Not Available [address], [address], 06/16/2021 01:00:03 06/11/19 22 06/15/2021 URINA LYSIS , COMPL ETE bacteria none seen /hpf none seen normal Not Available [address], [place], [address], 06/16/2021 01:00:03 06/11/19 22 06/15/2021 URINA LYSIS , COMPL ETE hyaline cast none seen /lpf none seen normal Not Available [facility] [address], [address], 06/16/2021 01:00:03 06/11/19 22 06/15/2021 CBC (INCL UDES DIFF/ PLT) white blood cell count 4.8 thous and/u L 3.8-10 .8 normal Not Available [facility] [address], [address], 06/16/2021 01:00:02 06/11/19 22 06/15/2021 CBC (INCL UDES DIFF/ PLT) red blood cell count 4.53 chrissy on/uL 4.20-5 .80 normal Not Available [address], [address], 06/16/2021 01:00:02 06/11/19 22 06/15/2021 CBC (INCL UDES DIFF/ PLT) hemoglobin 13.4 g/dL 13.2-1 7.1 normal Not Available [address], [address], 06/16/2021 01:00:02 06/11/19 22 06/15/2021 CBC (INCL UDES DIFF/ PLT) hematocrit 39.3 % 38.5-5 0.0 normal Not Available [facility] [address], [address], 06/16/2021 01:00:02 06/11/19 22 06/15/2021 CBC (INCL UDES DIFF/ PLT) MCV 86.8 fL 80.0-1 00.0 normal Not Available [facility] [address], [address], 06/16/2021 01:00:02 06/11/19 22 06/15/2021 CBC (INCL UDES DIFF/ PLT) MCH 29.6 pg 27.0-3 3.0 normal Not Available [address], [address], 06/16/2021 01:00:02 06/11/19 22 06/15/2021 CBC (INCL UDES DIFF/ PLT) MCHC 34.1 g/dL 32.0-3 6.0 normal Not Available [address], [address], 06/16/2021 01:00:02 06/11/19 22 06/15/2021 CBC (INCL UDES DIFF/ PLT) RDW 12.2 % 11.0-1 5.0 normal Not Available [address], [address], 06/16/2021 01:00:02 06/11/19 22 06/15/2021 CBC (INCL UDES DIFF/ PLT) platelet count 261 thous and/u L 140-40 0 normal Not Available [address], [address], 06/16/2021 01:00:02 06/11/19 22 06/15/2021 CBC (INCL UDES DIFF/ PLT) MPV 10.0 fL 7.5-12 .5 normal Not Available [address], [address], 06/16/2021 01:00:02 06/11/19 22 06/15/2021 CBC (INCL UDES DIFF/ PLT) absolute neutrophils 2818 cells /uL 1500-7 800 normal Not Available [address], [address], 06/16/2021 01:00:02 06/11/19 22 06/15/2021 CBC (INCL UDES DIFF/ PLT) absolute lymphocytes 1378 cells /uL 850-39 00 normal Not Available [address], [address], 06/16/2021 01:00:02 06/11/19 22 06/15/2021 CBC (INCL UDES DIFF/ PLT) absolute monocytes 475 cells /uL 200-95 0 normal Not Available [address], [address], 06/16/2021 01:00:02 06/11/19 22 06/15/2021 CBC (INCL UDES DIFF/ PLT) absolute eosinophils 110 cells /uL 15-500 normal Not Available [address], [address], 06/16/2021 01:00:02 06/11/19 22 06/15/2021 CBC (INCL UDES DIFF/ PLT) absolute basophils 19 cells /uL 0-200 normal Not Available [address], [address], 06/16/2021 01:00:02 06/11/19 22 06/15/2021 CBC (INCL UDES DIFF/ PLT) neutrophils 58.7 % normal Not Available [address], [address], 06/16/2021 01:00:02 06/11/19 22 06/15/2021 CBC (INCL UDES DIFF/ PLT) lymphocytes 28.7 % normal Not Available [address], [address], 06/16/2021 01:00:02 06/11/19 22 06/15/2021 CBC (INCL UDES DIFF/ PLT) monocytes 9.9 % normal Not Available [address], [address], 06/16/2021 01:00:02 06/11/19 22 06/15/2021 CBC (INCL UDES DIFF/ PLT) eosinophils 2.3 % normal Not Available [facility] [address] [address] [place], [address], 06/16/2021 01:00:02 06/11/19 22 06/15/2021 CBC (INCL UDES DIFF/ PLT) basophils 0.4 % normal Not Available [facility] [address] [address] [place], [address], 06/16/2021 01:00:02 06/11/19 22 06/15/2021 T4, FREE T4, free 1.1 NG/dL 0.8-1. 8 normal Not Available [facility] [address] [address] [place], [address], 06/16/2021 01:00:01 06/11/19 22 06/15/2021 TSH TSH 1.26 mIU/L 0.40-4 .50 normal Not Available [facility] [address] [address] [place], [address], 06/16/2021 01:00:01 06/11/1906/15/2021 HEMOG LOBIN A1C hemoglobin A1C 5.9 %_of_ total _HGB <5.7 high For someo ne witho ut known diabe radha, a hemog lobin A1c value betwe en 5.7% and 6.4% is consi stent with predi abete s and shoul d be confi rmed with a follo w-up test. For someo ne with known diabe radha, a value <7% indic ates that their diabe radha is well contr olled . A1c targe ts shoul d be indiv idual ized based on durat ion of diabe radha, age, comor bid condi tions , and other consi derat ions. This assay resul t is consi stent with an incre ased risk of diabe radha. Curre ntly, no conse nsus exist s regar ding use of hemog lobin A1c for diagn osis of diabe radha for child hill. Not Available [facility] [address] [address] [place], [address], 06/16/2021 01:00:00 06/11/19 22 06/15/2021 COMPR EHENS MAVIS METAB OLIC PANEL glucose 121 mg/dL 65-99 high Fasti ng refer ence inter taylor For someo ne witho ut known diabe radha, a gluco se value betwe en 100 and 125 mg/dL is consi stent with predi abete s and shoul d be confi rmed with a follo w-up test. Not Available [address], [address], 06/16/2021 01:00:00 06/11/19 22 06/15/2021 COMPR EHENS MAVIS METAB OLIC PANEL urea nitrogen (BUN) 18 mg/dL 7-25 normal Not Available [address], [address], 06/16/2021 01:00:00 06/11/19 22 06/15/2021 COMPR EHENS MAVIS METAB OLIC PANEL creatinine 1.08 mg/dL 0.60-1 .35 normal Not Available [address], [address], 06/16/2021 01:00:00 06/11/19 22 06/15/2021 COMPR EHENS MAVIS METAB OLIC PANEL eGFR non-afr. anguillan 85 mL/mi n/1.7 3m2 > or = 60 normal Not Available [address], [address], 06/16/2021 01:00:00 06/11/19 22 06/15/2021 COMPR EHENS MAVIS METAB OLIC PANEL eGFR 98 mL/mi n/1.7 3m2 > or = 60 normal Not Available [facility] [address], [address], 06/16/2021 01:00:00 06/11/19 22 06/15/2021 COMPR EHENS MAVIS METAB OLIC PANEL BUN/creatini ne ratio not applic able (calc ) 6-22 Not Available [address], [address], 06/16/2021 01:00:00 06/11/19 22 06/15/2021 COMPR EHENS MAVIS METAB OLIC PANEL sodium 138 mmol/ L 135-14 6 normal Not Available [address], [address], 06/16/2021 01:00:00 06/11/19 22 06/15/2021 COMPR EHENS MAVIS METAB OLIC PANEL potassium 4.5 mmol/ L 3.5-5. 3 normal Not Available [address], [address], 06/16/2021 01:00:00 06/11/19 22 06/15/2021 COMPR EHENS MAVIS METAB OLIC PANEL chloride 106 mmol/ L 98-110 normal Not Available [address], [address], 06/16/2021 01:00:00 06/11/19 22 06/15/2021 COMPR EHENS MAVIS METAB OLIC PANEL carbon dioxide 26 mmol/ L 20-32 normal Not Available [address], [address], 06/16/2021 01:00:00 06/11/19 22 06/15/2021 COMPR EHENS MAVIS METAB OLIC PANEL calcium 8.8 mg/dL 8.6-10 .3 normal Not Available [address], [address], 06/16/2021 01:00:00 06/11/19 22 06/15/2021 COMPR EHENS MAVIS METAB OLIC PANEL protein, total 7.0 g/dL 6.1-8. 1 normal Not Available [address], [address], 06/16/2021 01:00:00 06/11/19 22 06/15/2021 COMPR EHENS MAVIS METAB OLIC PANEL albumin 4.2 g/dL 3.6-5. 1 normal Not Available [address], [address], 06/16/2021 01:00:00 06/11/19 22 06/15/2021 COMPR EHENS MAVIS METAB OLIC PANEL globulin 2.8 g/dL_ (calc ) 1.9-3. 7 normal Not Available [address], [address], 06/16/2021 01:00:00 06/11/19 22 06/15/2021 COMPR EHENS MAVIS METAB OLIC PANEL albumin/glob ulin ratio 1.5 (calc ) 1.0-2. 5 normal Not Available [address], [address], 06/16/2021 01:00:00 06/11/19 22 06/15/2021 COMPR EHENS MAVIS METAB OLIC PANEL bilirubin, total 0.5 mg/dL 0.2-1. 2 normal Not Available [address], [address], 06/16/2021 01:00:00 06/11/19 22 06/15/2021 COMPR EHENS MAVIS METAB OLIC PANEL alkaline phosphatase 123 U/L 36-130 normal Not Available [address], [address], 06/16/2021 01:00:00 06/11/19 22 06/15/2021 COMPR EHENS MAVIS METAB OLIC PANEL AST 12 U/L 10-40 normal Not Available [address], [address], 06/16/2021 01:00:00 06/11/19 22 06/15/2021 COMPR EHENS MAVIS METAB OLIC PANEL ALT 39 U/L 9-46 normal Not Available [facility] [address] [address] [place], [address], 06/16/2021 01:00:00 06/11/19 22 06/15/2021 LIPID PANEL , STAND TANIA cholesterol, total 150 mg/dL <200 normal Not Available [facility] [address] [address] [place], [address], 06/16/2021 01:00:00 06/11/19 22 06/15/2021 LIPID PANEL , STAND TANIA HDL cholesterol 29 mg/dL > or = 40 low Not Available [facility] [address] [address] [place], [address], 06/16/2021 01:00:00 06/11/19 22 06/15/2021 LIPID PANEL , STAND TANIA triglyceride s 96 mg/dL <150 normal Not Available [facility] [address] [address] [place], [address], 06/16/2021 01:00:00 06/11/19 22 06/15/2021 LIPID PANEL , STAND TANIA LDL-choleste rol 102 mg/dL _(chilango c) high Refer ence range : <100 Louann able range <100 mg/dL for prima ry preve ntion ; <70 mg/dL for patie nts with CHD or diabe tic patie nts with > or = 2 CHD risk facto rs. LDL-C is now calcu lated using the Dolores whipple-[facility] kins eboni tobar n, which is a valid ated novel kat mcknight accur acy than the Fried tavares equat ion in the estim ation of LDL-C . Dolores whipple SS et al. JEFFRY. 2013; 310(1 9): 2061- 2068 (http ://ed ucati on.Qu Jovita mcleans. com/f aq/FA Q164) Not Available [facility] [address] [address] [place], [address], 06/16/2021 01:00:00 06/11/19 22 06/15/2021 LIPID PANEL , STAND TANIA chol/HDLC ratio 5.2 (calc ) <5.0 high Not Available [employer] [facility] [address] [address], [place], [address], 06/16/2021 01:00:00 06/11/19 22 06/15/2021 LIPID PANEL , STAND TANIA non HDL cholesterol 121 mg/dL _(chilango c) <130 normal For patie nts with diabe radha plus 1 major ASCVD risk facto r, treat ing to a non-H DL-C goal of <100 mg/dL (LDL- C of <70 mg/dL ) is consi dered a thera peuti c optio n. Not Available [facility] [address] [address], [place], [address], 06/16/2021 01:00:00 06/11/19 22 06/15/2021 ALDOS MARJORIE E/AMIRA SMA RENIN ACTIV ITY RATIO ,LC/M S/MS aldosterone, lc/MS/MS 7 NG/dL Adult Refer ence Range s for Aldos marjorie e: Uprig ht 8:00- 10:00 am < or = 28 ng/dL Uprig ht 4:00- 6:00 pm < or = 21 ng/dL Supin e 8:00- 10:00 am 3-16 ng/dL This test was devel oped and its shane tical perfo rmanc e bettye cteri stics have been deter mined by [facility] Gilberto Graysoni luc [place] . It has not been clear ed or appro evelyn by FDA. This assay has been valid ated pursu ant to the CLIA regul ation s and is used for clini chilango purpo ses. Not Available [employer] [facility] [address] [address], [place], [address], 06/16/2021 00:59:59 06/11/19 22 06/15/2021 ALDOS MARJORIE E/AMIRA SMA RENIN ACTIV ITY RATIO ,LC/M S/MS plasma renin activity, lc/MS/MS 3.21 NG/mL /h 0.25-5 .82 Not Available [employer] [facility] [address] [place], [address], 06/16/2021 00:59:59 06/11/1906/15/2021 ALDOS MARJORIE E/AMIRA SMA RENIN ACTIV ITY RATIO ,LC/M S/MS mercedes/pra ratio 2.2 ratio 0.9-28 .9 Not Available [facility] [address] [place], [address], 06/16/2021 00:59:59 01/08/20 22 01/08/2022 HEMOG LOBIN A1C hemoglobin A1C 5.7 %_of_ total _HGB <5.7 high For someo ne witho ut known diabe radha, a hemog lobin A1c value betwe en 5.7% and 6.4% is consi stent with predi abete s and shoul d be confi rmed with a follo w-up test. For someo ne with known diabe radha, a value <7% indic ates that their diabe radha is well contr olled . A1c targe ts shoul d be indiv idual ized based on durat ion of diabe radha, age, comor bid condi tions , and other consi derat ions. This assay resul t is consi stent with an incre ased risk of diabe radha. Curre ntly, no conse nsus exist s regar ding use of hemog lobin A1c for diagn osis of diabe radha for child hill. Not Available [facility] [address], [place], [address], 01/08/2022 03:01:13 01/08/20 22 01/08/2022 COMPR EHENS MAVIS METAB OLIC PANEL glucose 117 mg/dL 65-99 high Fasti ng refer ence inter taylor For someo ne witho ut known diabe radha, a gluco se value betwe en 100 and 125 mg/dL is consi stent with predi abete s and shoul d be confi rmed with a follo w-up test. Not Available [facility] [address] [place], [address], 01/08/2022 03:01:12 01/08/20 22 01/08/2022 COMPR EHENS MAVIS METAB OLIC PANEL urea nitrogen (BUN) 18 mg/dL 7-25 normal Not Available [address], [address], 01/08/2022 03:01:12 01/08/20 22 01/08/2022 COMPR EHENS MAVIS METAB OLIC PANEL creatinine 1.11 mg/dL 0.60-1 .29 normal Not Available [address], [address], 01/08/2022 03:01:12 01/08/20 22 01/08/2022 COMPR EHENS MAVIS METAB OLIC PANEL eGFR 85 mL/mi n/1.7 3m2 > or = 60 normal The eGFR is based on the CKD-E PI 2020 equat ion. To calcu late the new eGFR from a previ ous Creat inine or Cysta tin C resul t, go to https ://keke garcia.last wolff.o mika/allie cardona s/ kdoqi /gfr% 5Fcal culat or Not Available [address], [address], 01/08/2022 03:01:12 01/08/20 22 01/08/2022 COMPR EHENS MAVIS METAB OLIC PANEL BUN/creatini ne ratio not applic able (calc ) 6-22 Not Available [address], [address], 01/08/2022 03:01:12 01/08/20 22 01/08/2022 COMPR EHENS MAVIS METAB OLIC PANEL sodium 137 mmol/ L 135-14 6 normal Not Available [address], [address], 01/08/2022 03:01:12 01/08/20 22 01/08/2022 COMPR EHENS MAVIS METAB OLIC PANEL potassium 4.4 mmol/ L 3.5-5. 3 normal Not Available [address], [address], 01/08/2022 03:01:12 01/08/20 22 01/08/2022 COMPR EHENS MAVIS METAB OLIC PANEL chloride 106 mmol/ L 98-110 normal Not Available [address], [address], 01/08/2022 03:01:12 01/08/20 22 01/08/2022 COMPR EHENS MAVIS METAB OLIC PANEL carbon dioxide 25 mmol/ L 20-32 normal Not Available [address], [address], 01/08/2022 03:01:12 01/08/20 22 01/08/2022 COMPR EHENS MAVIS METAB OLIC PANEL calcium 9.3 mg/dL 8.6-10 .3 normal Not Available [address], [address], 01/08/2022 03:01:12 01/08/20 22 01/08/2022 COMPR EHENS MAVIS METAB OLIC PANEL protein, total 7.4 g/dL 6.1-8. 1 normal Not Available [address], [address], 01/08/2022 03:01:12 01/08/20 22 01/08/2022 COMPR EHENS MAVIS METAB OLIC PANEL albumin 4.3 g/dL 3.6-5. 1 normal Not Available [address], [address], 01/08/2022 03:01:12 01/08/20 22 01/08/2022 COMPR EHENS MAVIS METAB OLIC PANEL globulin 3.1 g/dL_ (calc ) 1.9-3. 7 normal Not Available [address], [address], 01/08/2022 03:01:12 01/08/20 22 01/08/2022 COMPR EHENS MAVIS METAB OLIC PANEL albumin/glob ulin ratio 1.4 (calc ) 1.0-2. 5 normal Not Available [address], [address], 01/08/2022 03:01:12 01/08/20 22 01/08/2022 COMPR EHENS MAVIS METAB OLIC PANEL bilirubin, total 0.3 mg/dL 0.2-1. 2 normal Not Available [address], [address], 01/08/2022 03:01:12 01/08/20 22 01/08/2022 COMPR EHENS MAVIS METAB OLIC PANEL alkaline phosphatase 111 U/L 36-130 normal Not Available [facility] [employer] [address], [address], 01/08/2022 03:01:12 01/08/20 22 01/08/2022 COMPR EHENS MAVIS METAB OLIC PANEL AST 9 U/L 10-40 low Not Available [address], [address], 01/08/2022 03:01:12 01/08/20 22 01/08/2022 COMPR EHENS MAVIS METAB OLIC PANEL ALT 25 U/L 9-46 normal Not Available [address], [address], 01/08/2022 03:01:12 01/08/20 22 01/08/2022 LIPID PANEL WITH REFLE X TO DIREC T LDL cholesterol, total 163 mg/dL <200 normal Not Available [address], [address], 01/08/2022 03:01:11 01/08/20 22 01/08/2022 LIPID PANEL WITH REFLE X TO DIREC T LDL HDL cholesterol 37 mg/dL > or = 40 low Not Available [facility] [id number] [place] [address], [address], 01/08/2022 03:01:11 01/08/20 22 01/08/2022 LIPID PANEL WITH REFLE X TO DIREC T LDL triglyceride s 100 mg/dL <150 normal Not Available [facility] [address], [address], 01/08/2022 03:01:11 01/08/20 22 01/08/2022 LIPID PANEL WITH REFLE X TO DIREC T LDL LDL-choleste rol 106 mg/dL _(chilango c) high Refer ence range : <100 Louann able range <100 mg/dL for prima ry preve ntion ; <70 mg/dL for patie nts with CHD or diabe tic patie nts with > or = 2 CHD risk facto rs. LDL-C is now calcu lated using the Dolores whipple-[employer] kins calcu ekaterina n, which is a valid ated novel metho d provi ding dimitris r accur acy than the Fried tavares equat ion in the estim ation of LDL-C . Dolores whipple SS et al. JEFFRY. 2013; 310(1 9): 2061- 2068 (http ://ed ucati on.Qu Jovita D[employer]. com/f aq/FA Q164) Not Available [address] [address] [place], [address], 01/08/2022 03:01:11 01/08/20 22 01/08/2022 LIPID PANEL WITH REFLE X TO DIREC T LDL chol/HDLC ratio 4.4 (calc ) <5.0 normal Not Available [address], [address], 01/08/2022 03:01:11 01/08/20 22 01/08/2022 LIPID PANEL WITH REFLE X TO DIREC T LDL non HDL cholesterol 126 mg/dL _(chilango c) <130 normal For patie nts with diabe radha plus 1 major ASCVD risk facto r, treat ing to a non-H DL-C goal of <100 mg/dL (LDL- C of <70 mg/dL ) is alfred murphy n. Not Available [employer] [facility] [address] [address], [place], [address], 01/08/2022 03:01:11 05/31/19 22 05/28/2021 US, duple x, renal arter y No observ ation record ed. 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 Gender Identity Not on file Sexual Orientation Not on file Obstetrics History Last Filed Vital Signs Vital Sign Reading [...] 10/14/2023 6:22 PM CDT Plan of Treatment Health Maintenance Due Date Last Done Comments Depression Screening 1980 Hepatitis C Screening 1980 DTaP/Tdap/Td Vaccine (1 - Tdap) 09/10/1990 Hepatitis B Screening 09/10/1997 Regular Well Visit/Exam 18-64 09/10/1997 Varicella Vaccines (1 of 2 - 13+ 2-dose series) 04/13/2022 Covid-19 Vaccine (3 - 2023- season) 2023 02/24/2021, 06/22/2020 Influenza Vaccine (#1) 2023 , 03/16/2022, 12/10/2019, Additional history exists HPV Vaccines Aged Out No longer eligi ble based on patient's age to complete this topic Pneumococcal vaccine <65 Aged Out No longer eligible based on patient's age to complete this topic Insurance [facility] Care Teams Bond Runner Relationship Specialty Start Date End Date Naty Molina PA PCP - General Physician Plumber 11/19/22 "
[2024-08-29 10:16] VITALS: BP 131/79; PULSE 66; RESP 16; TEMP 36.3; O2SAT 99; BMI 28.8
--- NOTE | 2024-08-29 10:19 | P.PNAN_ITS ---
Anes - Initial Pre Proc Eval Procedure: Operation Date: 08/29/24 11:15 Proposed Procedures p Esophagogastroduodenoscopy - Dioni Moss MD Date/Time: 08/29/24 10:19 Surgeon: Dioni Moss MD Pre Op Diagnosis: Anemia, unspecified Patient Data Age: 43 Gender: M Height: 1.85 m Weight: 97.8 kg Allergies Allergy/AdvReac Type Severity Reaction Status Date / Time No Known Allergies Allergy Verified 08/22/24 09:54 Home Medications Medication Instructions Recorded Confirmed Type valsartan 320 mg tablet 320 mg PO DAILY 30 days #30 tabs 05/17/21 08/22/24 Rx amlodipine 10 mg tablet 10 mg PO DAILY 08/14/22 08/22/24 History nitrofurantoin macrocrystal 100 mg 100 mg PO Q12H 7 days #14 caps 01/11/24 08/22/24 Rx capsule tadalafil 20 mg tablet 20 mg PO PRN PRN SEXUAL ACTIVITY 08/22/24 08/22/24 History Patient hx anesthesia problems: none Family hx anesthesia problems: none Results Review: All pre-operative results and documents have been reviewed as part of the pre- operative evaluation. [facility] Past Medical History Medical History History of high blood pressure Social History Social History Years smoked: 5 Smoking status: Current every day smoker Tobacco type: e-cigarettes/vaping Smoking end date: 04/17/14 Alcohol intake: never Substance use: never Substance use type: does not use Living arrangements: with family Spiritual care concerns: No Anes - Eval Final PreProcedure Day of Procedure 08/29/24 10:19 Patient weight: overweight Heart: regular rate and rhythm Lungs: clear to auscultation Airway: Mallampati scale class II Neurological: alert and oriented Last oral intake: >/= 8 hours ASA classification: II Emergent: no Anesthetic plan: proceed Anesthesia type and monitoring: general GIVS and standard monitoring Results Review: All pre-operative results and documents have been reviewed as part of the pre- operative evaluation. Informed Consent: The patient's anesthetic plan and its attendant risks and benefits were discussed with the patient/family/POA. Questions were solicited and answers provided to the satisfaction of the patient/family/POA.
[2024-08-29] MEDS: LACTATED RINGERS 1,000 ML 150 ML IV CONT (10:32)
--- NOTE | 2024-08-29 10:40 | PM.HPGS ---
History of Present Illness History of Present Illness Consent: Risks, benefits, and alternatives have been discussed and questions answered. Patient agrees to proceed with procedure. Chief complaint: Anemia, unspecified Narrative: Arjun Mitchell is a 43 year old male here for first egd, pcp noted TAE, denies overt gib Review of Systems Review of Systems: All systems reviewed & are unremarkable except as noted in HPI and below PMFSH Past Medical History Medical History (Updated 08/29/24 @ 10:41 by Dioni Moss MD) Iron deficiency anemia History of high blood pressure Social History Social History Years smoked: 5 Smoking status: Current every day smoker Tobacco type: e-cigarettes/vaping Smoking end date: 04/17/14 Alcohol intake: never Substance use: never Substance use type: does not use Living arrangements: with family Spiritual care concerns: No Meds Home Medications and Allergies Home Medications Medication Instructions Recorded Confirmed Type valsartan 320 mg tablet 320 mg PO DAILY 30 days #30 tabs 05/17/21 08/29/24 Rx amlodipine 10 mg tablet 10 mg PO DAILY 08/14/22 08/29/24 History nitrofurantoin macrocrystal 100 mg 100 mg PO Q12H 7 days #14 caps 01/11/24 08/29/24 Rx capsule tadalafil 20 mg tablet 20 mg PO PRN PRN SEXUAL ACTIVITY 08/22/24 08/29/24 History Allergies Allergy/AdvReac Type Severity Reaction Status Date / Time No Known Allergies Allergy Verified 08/29/24 10:21 Vital Signs Vital Signs - 24 hr 08/29/24 10:16 Temperature 97.3 F L Pulse Rate 66 Respiratory Rate 16 Blood Pressure 131/79 Pulse Oximetry 99 Oxygen Delivery Room Air Exam Const: General: comfortable and no acute distress HENMT: Face/Nose/Sinus: Normal nares present Eyes: General: appearance normal, both eyes and all related structures Neck: Neck: no JVD Resp: Auscultation: clear to auscultation bilaterally Cardio: Rate: regular rate Rhythm: regular rhythm GI: Inspection: non-distended GI Palp: Yes Soft to palpation Skin: General skin exam: normal color Neuro: General: gait normal Speech: normal speech Extrem: General: normal to inspection Psych: Mental Status: mental status grossly normal Assessment and Plan Assessment and plan (1) Iron deficiency anemia: Code(s): D50.9 - Iron deficiency anemia, unspecified Status: Acute Assessment and Plan: egd today, if negative then will schedule colonoscopy for another time
[2024-08-29 10:50] VITALS: BP 117/68; PULSE 72; RESP 14; O2SAT 97
[2024-08-29 11:00] VITALS: BP 117/70; PULSE 70; RESP 17; O2SAT 99
== END 2024-08-29 11:18 | disposition home or self-care (01) ==
PROVIDERS: PCP Physician Assistant; Referring Provider Physician Assistant; Visit Provider Internal Medicine Gastroenterology
PROC: 0DJ08ZZ Inspection of Upper Intestinal Tract, Via Natural or Artificial Opening Endoscopic (ICD-10-PCS; CPT 43239; principal; 2024-08-29 11:15)
DX: D50.9 Iron deficiency anemia, unspecified (principal); K31.89 Other diseases of stomach and duodenum; I10 Essential (primary) hypertension; F17.290 Nicotine dependence, other tobacco product, uncomplicated
CPT/HCPCS: 43239; 88305; J2704; J7120